=== PATIENT | male | born 1970 | race Caucasian/White ===

== ENCOUNTER 2020-07-28 20:46 | Inpatient (IN) | payer BC ==
[~2020-07-28] VITALS: Ht 172.7 cm; Wt 120.2 kg
[2020-07-28] MEDS ORDERED: ONDANSETRON HCL INJ 2MG/ML 2ML 2 MG/ML VIAL ONE ×2 (21:01→21:39)
[2020-07-28] MEDS ORDERED: SODIUM CHLORIDE 0.9% 1000ML 1,000 ML ONE (21:01)
[2020-07-28] MEDS ORDERED: FAMOTIDINE 20 MG/2 ML VIAL IV STA (21:18)
[2020-07-28] MEDS ORDERED: ONDANSETRON HCL INJ 2MG/ML 2ML 2 MG/ML VIAL IV STA ×2 (21:18)
[2020-07-28] MEDS ORDERED: KETOROLAC TROMETHAMINE 30 MG/ML VIAL IV STA (21:23)
[2020-07-28] MEDS ORDERED: KETOROLAC TROMETHAMINE 30 MG/ML VIAL ONE (21:39)
[2020-07-28] MEDS ORDERED: FAMOTIDINE 20 MG/2 ML VIAL IV ONE (21:39)
[2020-07-28] MEDS ORDERED: SODIUM CHLORIDE 0.9% 1000ML 1,000 ML IV STA (21:39)
[2020-07-28] MEDS: SODIUM CHLORIDE 0.9% 1000ML 1,000 ML IV SCH (21:45)
[2020-07-28] MEDS ORDERED: SODIUM CHLORIDE 0.9% 50ML 50 ML ONE (21:50)
[2020-07-28] MEDS ORDERED: IOPAMIDOL 370 MG/ML 200 ML INFUS..BTL INJ ONE (21:51)
--- NOTE | 2020-07-28 22:41 | Diagnostic Imaging Report ---
EXAMINATION: CXR 2 VIEW - HOPD INDICATION: ^epigastric pain ^[id number] ^221 COMPARISON: None FINDINGS: PA and lateral views TUBES and LINES: None. LUNGS: Lungs are well inflated. Mild left basilar subsegmental atelectasis. PLEURA: No pleural effusion or pneumothorax. HEART AND MEDIASTINUM: The cardiomediastinal silhouette is unremarkable. BONES AND SOFT TISSUES: No acute osseous lesion. Elevated left hemidiaphragm. UPPER ABDOMEN: No free air under the diaphragm. Gaseous distention of stomach. IMPRESSION: Elevated left hemidiaphragm with mild left basilar subsegmental atelectasis. Gaseous distention of stomach. Signed by: Dr. Hua Bowden MD on 07/28/2020 10:38 PM
[2020-07-28] MEDS ORDERED: MORPHINE SULFATE INJ 4 MG/ML INJ 1ML IV STA (22:42)
--- NOTE | 2020-07-28 22:51 | Diagnostic Imaging Report ---
EXAM: CT Abdomen and Pelvis WITH contrast INDICATION: ^abd pain ^[id number] ^[id number] COMPARISON: None. TECHNIQUE: Abdomen and pelvis were scanned utilizing a multidetector helical scanner from the lung base to the pubic symphysis after administration of IV contrast. Coronal and sagittal reformations were obtained. Dose modulation, iterative reconstruction, and/or weight based adjustment of the mA/kV was utilized to reduce the radiation dose to as low as reasonably achievable. Routine protocol was performed. Scan was performed when during portal venous phase. IV CONTRAST: 100 mL of Isovue-370 ORAL CONTRAST: None COMPLICATIONS: None RADIATION DOSE: Total DLP: 929.56 mGy*cm Estimated effective dose: (DLP x 0.015 x size factor) mSv CTDIvol has been reviewed. It is below the limits set by the Radiation Protocol Committee (RPC). FINDINGS: LINES and TUBES: None. LOWER THORAX: Tiny left upper lobe nonspecific nodule. HEPATOBILIARY: Multiple ill-defined right hepatic lobe hypodensities, measuring up to 2.5 cm. No biliary ductal dilation. GALLBLADDER: Cholelithiasis. No wall thickening. SPLEEN: Splenomegaly. PANCREAS: No focal masses or ductal dilatation. ADRENALS: No adrenal nodules KIDNEYS/URETERS: Kidneys enhance symmetrically. No hydronephrosis. No cystic or solid mass lesions. No stones. GI TRACT: No wall thickening, or evidence of bowel obstruction. Moderate gaseous distention of stomach. Appendix is normal. PELVIC ORGANS/BLADDER: Unremarkable. LYMPH NODES: No lymphadenopathy. Scattered prominent mesenteric lymph nodes with stranding haziness for example in series 2, image 60. VESSELS: Unremarkable. PERITONEUM / RETROPERITONEUM: No free air or fluid. BONES: Degenerative changes of lower lumbar spine. SOFT TISSUES: Elevated left hemidiaphragm. Left upper quadrant splenule. Small fat-containing bilateral inguinal hernia. IMPRESSION: 1. Moderate gaseous distention of stomach. Gastric outlet obstruction cannot be excluded. 2. Multiple indeterminate hepatic hypodensities. Recommend nonurgent liver mass protocol MRI for further characterization. 3. Cholelithiasis without CT evidence of cholecystitis. 4. Multiple prominent mesenteric lymph nodes with surrounding halo. Attention on follow-up examination. 5. Tiny left upper lobe lung nodule. Without risk factors, no follow-up is necessary. With risk factors, follow-up with low-dose chest CT in one year is optional. Signed by: Dr. Hua Bowden MD on 07/28/2020 10:48 PM
[2020-07-28] MEDS ORDERED: MORPHINE SULFATE INJ 4 MG/ML INJ 1ML ONE (22:54)
--- NOTE | 2020-07-28 23:39 | NUR ---
[facility] NOTIFIED OF NEED FOR TRANSFER TO [facility] ROOM 100. ETA 45 MINUTES TO ONE HOUR
[2020-07-28] MEDS: SODIUM CHLORIDE 0.9% 250ML IRRIG IR SCH (23:45)
[2020-07-28] MEDS ORDERED: ONDANSETRON HCL INJ 2MG/ML 2ML 2 MG/ML VIAL IV PRN (23:45)
[2020-07-29] VITALS (9 sets, daily range): BP systolic 120–152; BP diastolic 54–78
--- NOTE | 2020-07-29 00:33 | Emergency Department Note ---
History of Present Illnes History of Present Illness Chief Complaint: Abdominal Complaints History of Present Illness This is a 50 year old male with epigastric pain at 1800 and worse with N/V after eating a few minutes. Last meal before that was left over Thai. No one else that ate Thai got ill. No CP, SOB, diaphoresis. Last BM this afternoon was WNL with no constipation, diarrhea, melena, or hematachezia. No cough, congestion, lack of taste/smell, sore throat, or runny nose. No blood in vomit. Historian: Patient Arrival Mode: [facility] Laboratory Technician Required: No Onset (how long ago): hour(s) Location: epigastric Quality: "knife" like Radiation: Reports non-radiation Severity: severe Onset quality: gradual Duration (how long): hour(s) Timing of current episode: constant Progression: unchanged Chronicity: new Context: Denies trauma/injury Relieving factors: none Exacerbating factors: none Associated symptoms: Reports nausea/vomiting; Denies chest pain, Denies fever/chills, Denies shortness of breath, Denies syncope Past Medical/Family History Physician Review I have reviewed the patient's past medical and family history. Any updates have been documented here. Past Medical History Recent Fever: No Clinical Suspicion of Infectio: No New/Unexplained Change in Ment: No Past Medical History: Hypertension Other Surgery: OPEN HEART SURGERY A CHILD AGE 3 Social History Smoking Cessation: Never Smoker Counseling Performed: No Alcohol Use: Occasional Any Illegal Drug Use: No Other Any Pre-Existing Lines (PICC,: No Review of Systems Review of Systems Constitutional: Denies chills, Denies diaphoresis, Denies fever, Denies malaise EENTM: Denies ear discharge, Denies nose congestion, Denies throat pain Cardiovascular: Denies chest pain, Denies edema, Denies palpitations Respiratory: Denies chest congestion, Denies hemoptysis Gastrointestinal: Denies abdominal pain, Denies constipation Genitourinary: Denies dysuria, Denies hematuria Musculoskeletal: Denies joint pain, Denies neck pain Integumentary: Denies rash Neurological: Denies headache Psychological: Denies anxiety Endocrine: Denies increased thirst, Denies increased urination Hematological/Lymphatic: Denies easy bleeding, Denies easy bruising Physical Exam Related Data Allergies: Coded Allergies: No Known Allergies (Unverified , 07/28/20) Triage Vital Signs Vital Signs Date Time Temp Pulse Resp B/P (MAP) Pulse Ox O2 Delivery O2 Flow Rate FiO2 07/28/20 21:12 97.8 58 18 164/77 99 Physical Exam CONSTITUTIONAL Constitutional: Present well-developed, Present well-nourished HENT HENT: Present normocephalic, Present atraumatic, Present oropharynx clear/moist, Present nose normal HENT L/R: Present left ext ear normal, Present right ext ear normal EYES Eyes: Reports PERRL, Reports conjunctivae normal NECK Neck: Present ROM normal PULMONARY Pulmonary: Present effort normal, Present breath sounds normal CARDIOVASCULAR Cardiovascular: Present regular rhythm, Present heart sounds normal, Present capillary refill normal, Present normal rate GASTROINTESTINAL Abdominal: Present bowel sounds normal, Present tender (epigastric tenderness, no Bautista's); Absent mass, Absent left CVA tenderness, Absent right CVA tenderness GENITOURINARY SKIN Skin: Present warm, Present dry MUSCULOSKELETAL Musculoskeletal: Present ROM normal NEUROLOGICAL Neurological: Present alert, Present oriented x 3, Present no gross motor or sensory deficits PSYCHOLOGICAL Psychological: Present mood/affect normal, Present judgement normal Results Laboratory Laboratory comments wbc 12.6, CMP: glu 132, CL 96, cr 1.4 o/w negative, Imaging Imaging Comments EXAM: CT Abdomen and Pelvis WITH contrast INDICATION: ^abd pain ^[id number] ^[id number] COMPARISON: None. TECHNIQUE: Abdomen and pelvis were scanned utilizing a multidetector helical scanner from the lung base to the pubic symphysis after administration of IV contrast. Coronal and sagittal reformations were obtained. Dose modulation, iterative reconstruction, and/or weight based adjustment of the mA/kV was utilized to reduce the radiation dose to as low as reasonably achievable. Routine protocol was performed. Scan was performed when during portal venous phase. IV CONTRAST: 100 mL of Isovue-370 ORAL CONTRAST: None COMPLICATIONS: None RADIATION DOSE: Total DLP: 929.56 mGy*cm Estimated effective dose: (DLP x 0.015 x size factor) mSv CTDIvol has been reviewed. It is below the limits set by the Radiation Protocol Committee (RPC). FINDINGS: LINES and TUBES: None. LOWER THORAX: Tiny left upper lobe nonspecific nodule. HEPATOBILIARY: Multiple ill-defined right hepatic lobe hypodensities, measuring up to 2.5 cm. No biliary ductal dilation. GALLBLADDER: Cholelithiasis. No wall thickening. SPLEEN: Splenomegaly. PANCREAS: No focal masses or ductal dilatation. ADRENALS: No adrenal nodules KIDNEYS/URETERS: Kidneys enhance symmetrically. No hydronephrosis. No cystic or solid mass lesions. No stones. GI TRACT: No wall thickening, or evidence of bowel obstruction. Moderate gaseous distention of stomach. Appendix is normal. PELVIC ORGANS/BLADDER: Unremarkable. LYMPH NODES: No lymphadenopathy. Scattered prominent mesenteric lymph nodes with stranding haziness for example in series 2, image 60. VESSELS: Unremarkable. PERITONEUM / RETROPERITONEUM: No free air or fluid. BONES: Degenerative changes of lower lumbar spine. SOFT TISSUES: Elevated left hemidiaphragm. Left upper quadrant splenule. Small fat-containing bilateral inguinal hernia. IMPRESSION: 1. Moderate gaseous distention of stomach. Gastric outlet obstruction cannot be excluded. 2. Multiple indeterminate hepatic hypodensities. Recommend nonurgent liver mass protocol MRI for further characterization. 3. Cholelithiasis without CT evidence of cholecystitis. 4. Multiple prominent mesenteric lymph nodes with surrounding halo. Attention on follow-up examination. 5. Tiny left upper lobe lung nodule. Without risk factors, no follow-up is necessary. With risk factors, follow-up with low-dose chest CT in one year is optional. Signed by: Dr. Hua Bowden MD on 07/28/2020 10:48 PM EXAMINATION: CXR 2 VIEW - HOPD INDICATION: ^epigastric pain ^[id number] ^2209 COMPARISON: None FINDINGS: PA and lateral views TUBES and LINES: None. LUNGS: Lungs are well inflated. Mild left basilar subsegmental atelectasis. PLEURA: No pleural effusion or pneumothorax. HEART AND MEDIASTINUM: The cardiomediastinal silhouette is unremarkable. BONES AND SOFT TISSUES: No acute osseous lesion. Elevated left hemidiaphragm. UPPER ABDOMEN: No free air under the diaphragm. Gaseous distention of stomach. IMPRESSION: Elevated left hemidiaphragm with mild left basilar subsegmental atelectasis. Gaseous distention of stomach. Signed by: Dr. Hua Bowden MD on 07/28/2020 10:38 PM Procedures 12 Lead ECG Interpretation ECG Interpretation : ECG: ECG 1 [facility] Laboratory Technician: Interpreted by ED physician Prior ECG tracings: reviewed Rhythm: sinus bradycardia BPM: 54 Conduction: bifascicular block ST segments normal: Yes Clinical Impression: abnormal ECG Assessment & Plan Medical Decision Making MDM Differential dx includes, but not limited to: Cholelithiases, cholecystits, bowel obstruciton, IN, pancreatitis, pneumothorax, AAA, dissection, pneumonia, gastroenteritis, PUD, gastritis. Reassessment Reassessment time: 00:31 (Nausea resolved. Abd pain improved. Resting comfortably.) Assessment & Plan Final Impression: (1) Gastric outlet obstruction (2) Cholelithiases Depart Disposition: ADMITTED Last Vital Signs Date Time Temp Pulse Resp B/P (MAP) Pulse Ox O2 Delivery O2 Flow Rate FiO2 07/28/20 21:12 97.8 58 18 164/77 99 Medications in the ED Ondansetron HCl 4 mg STK-MED ONCE .ROUTE ; Start 07/28/20 at 21:01; Stop 07/28/20 at 20:56; Status DC Sodium Chloride 1,000 ml @ ud STK-MED ONCE .ROUTE ; Start 07/28/20 at 21:01; Stop 07/28/20 at 20:56; Status DC Ondansetron HCl 4 mg NOW STAT IV Last administered on 07/28/20at 21:40; Admin Dose 4 MG; Start 07/28/20 at 21:18; Stop 07/28/20 at 21:27; Status DC Ondansetron HCl 4 mg NOW STAT IV Last administered on 07/28/20at 21:30; Admin Dose 4 MG; Start 07/28/20 at 21:18; Stop 07/28/20 at 21:27; Status DC Famotidine 20 mg NOW STAT IV Last administered on 07/28/20at 21:42; Admin Dose 20 MG; Start 07/28/20 at 21:18; Stop 07/28/20 at 21:27; Status DC Ketorolac Tromethamine 30 mg ONCE STAT IV Last administered on 07/28/20at 21:44; Admin Dose 30 MG; Start 07/28/20 at 21:23; Stop 07/28/20 at 21:27; Statu s DC Ondansetron HCl 4 mg STK-MED ONCE .ROUTE ; Start 07/28/20 at 21:39; Stop 07/28/20 at 21:34; Status DC Ketorolac Tromethamine 30 mg STK-MED ONCE .ROUTE ; Start 07/28/20 at 21:39; Stop 07/28/20 at 21:34; Status DC Famotidine 20 mg STK-MED ONCE IV ; Start 07/28/20 at 21:39; Stop 07/28/20 at 21:34; Status DC Sodium Chloride 1,000 ml @ 125 mls/hr Q8H IV ; Start 07/28/20 at 21:45; Stop 08/27/20 at 21:44 Sodium Chloride 1,000 ml @ 100 mls/hr Q10H STAT IV Last administered on 07/28/20at 21:30; Admin Dose 1,000 MLS/HR; Start 07/28/20 at 21:39; Stop 07/28/20 at 21:48; Status DC Sodium Chloride 50 ml @ ud STK-MED ONCE .ROUTE ; Start 07/28/20 at 21:50; Stop 07/28/20 at 21:47; Status DC Iopamidol 74,000 mg STK-MED ONCE INJ ; Start 07/28/20 at 21:51; Stop 07/28/20 at 21:47; Status DC Morphine Sulfate 4 mg NOW STAT IV ; Start 07/28/20 at 22:42; Stop 07/28/20 at 22:43; Status DC Morphine Sulfate 4 mg STK-MED ONCE .ROUTE ; Start 07/28/20 at 22:54; Stop 07/28/20 at 22:48; Status DC JACKY PRINCE MD Jul 28, 2020 23:22
--- NOTE | 2020-07-29 01:24 | NUR ---
RECEIVED PATIENT FROM [facility] ED AT THIS TIME VIA STRETCHER. PATIENT AMBULATED TO BED, STEADY GAIT NOTED. A&OX4. LUNG SOUNDS CLEAR. BOWEL SOUNDS ACTIVE. PEDAL PULSES PALPABLE. SKIN INTACT. NO PAIN OR NAUSEA AT THIS TIME. NO S&S OF DISTRESS NOTED. BED LOCKED IN LOWEST POSITION, SIDE RAILS UPX2, CALL LIGHT IN REACH.
[2020-07-29] MEDS ORDERED: LISINOPRIL20 MG PO (01:58)
[2020-07-29] MEDS: D5.45%NS/KCL 20MEQ 1,000 ML IV SCH ×3 (02:08→15:45)
--- NOTE | 2020-07-29 03:25 | Diagnostic Imaging Report ---
EXAM: Abdomen 1 Views INDICATION: ^NG TUBE PLACEMENT ^[id number] ^[id number] COMPARISON: CT abdomen/pelvis dated 07/28/2020 IMPRESSION: Interval placement of nasogastric tube with decreased gaseous distention of stomach when compared to prior CT. The tip of nasogastric tube projects over the gastric body. Elevated left hemidiaphragm. Signed by: Dr. Hua Bowden MD on 07/29/2020 3:22 AM
[2020-07-29] MEDS: MORPHINE SULFATE INJ 4 MG/ML INJ 1ML IV PRN ×5 (03:30→19:50)
[2020-07-29] MEDS: SODIUM CHLORIDE 0.9% 250ML IRRIG IR SCH ×6 (03:42→23:45)
--- NOTE | 2020-07-29 03:45 | NUR ---
NGTUBE INSERTED TO L NARE AT 0230. GASTRIC FLUID NOTED TO TUBE. CLAMPED. ORDERED ABD X RAY TO CHECK PLACEMENT WHICH SHOWED TUBE IN THE STOMACH. FLUSHED AND CONNECTED TO SUCTION. REDDISH/BROWN FLUID NOTED. WILL CONTINUE TO MONITOR.
[2020-07-29] MEDS: SODIUM CHLORIDE 0.9% 1000ML 1,000 ML IV SCH (05:45)
[2020-07-29 06:59] LABS: ALANINE AMINOTRANSFERASE 17 IU/L (0-55); ALBUMIN 3.9 g/dL (3.5-5.0); ALBUMIN/GLOBULIN RATIO 1.7 (0.8-2.0); ALKALINE PHOSPHATASE 68 IU/L (40-150); AMYLASE 49 U/L (25-125); ANION GAP 11.9 mmol/L (8-16); BLOOD UREA NITROGEN 17 mg/dL (7-26); BUN/CREATININE RATIO 17 (6-25); CARBON DIOXIDE 27 mmol/L (22-29); CHLORIDE 106 mmol/L (98-107); CREATININE, SERUM 0.99 mg/dL (0.72-1.25); EST GLOMERULAR FILTRATION RATE > 60 ML/MIN (60-); GLUCOSE 118 mg/dL (74-118); LIPASE 12 U/L (8-78); POTASSIUM 3.9 mmol/L (3.5-5.1); SODIUM 141 mmol/L (136-145)
[2020-07-29 07:00] LABS: BASOPHILS # (AUTO) 0.1 (0.0-0.1); BASOPHILS % 0.5 % (0.0-1.0); EOSINOPHILS # (AUTO) 0.1 (0.0-0.4); EOSINOPHILS % 0.7 % (0.0-6.0); HEMATOCRIT 38.9 % (38.2-49.6); HEMOGLOBIN 12.7 g/dL (14.0-18.0); LYMPHOCYTES # (AUTO) 1.5 (1.0-3.2); MEAN CORPUSCULAR HEMOGLOBIN 30.3 pg (28-32); MEAN CORPUSCULAR HGB CONC 32.6 g/dL (31-35); MEAN CORPUSCULAR VOLUME 92.8 fL (81-99); MONOCYTES # (AUTO) 0.7 (0.2-0.8); MONOCYTES % 6.2 % (4.4-11.3); NEUTROPHILS # (AUTO) 8.6 (2.1-6.9); NEUTROPHILS % 77.7 % (38.7-80.0); PLATELET COUNT 143 x10e3/uL (140-360); RED BLOOD COUNT 4.19 x10e6/uL (4.3-5.7)
--- NOTE | 2020-07-29 08:58 | Diagnostic Imaging Report ---
EXAM: Abdominal series-4 views; Frontal radiograph of the chest chest-1 view INDICATION: gastric outlet obstruction COMPARISON: CT abdomen/pelvis dated 07/28/2020 and KUB 07/28/2020. Findings: Abdomen/Pelvis: Enteric tube terminates in the distal stomach. No specific evidence of bowel obstruction. No evidence of pneumoperitoneum. Cholelithiasis. Retained contrast within the bladder. No acute osseous abnormality. Chest: Cardiomediastinal silhouette is unchanged. There are patchy opacities at the left lung base. Mild interstitial opacities. No pleural effusion or pneumothorax. Status post median sternotomy. Elevation of left hemidiaphragm. Impression: Enteric tube as above. No specific evidence of bowel obstruction. Patchy left basilar opacity, likely atelectasis with associated elevation of left hemidiaphragm. Signed by: Dr. Jose Anaya MD on 07/29/2020 8:55 AM
--- OUTSIDE RECORDS SUMMARY | 2020-07-29 16:48 | XMS REPORT | Continuity of Care Document ---
Author Author [facility] t Organization [facility] Address [address] [place] [phone] Phone Unavailable Care Team Providers Care Guest Services Director Name Role Phone Gael Horan MD PCP DAMary BUI Attphymary Unavailable Gael Horan MD Attphys DAMary BUI Admphys Unavailable Payers Payer Name Policy Type Policy Number Effective Date Expiration Date S cherri BCBSBCBS CHOICE PPO/FEDERAL EMPL [id number] 2019-Pre sentPPO [id number] 2020 00:00:00 Kyle Bautista Problems Condition Name Condition Details Condition Category Status Onset Date Resolution Date Last Treatment Date Treating Clinician Comments Source IFG (impaired fasting glucose) IFG (impaired fasting glucose) Disea se Active 2018-09-28 00:00:00 Kyle Bautista Obesity (BMI 30-39.9) Obesity (BMI 30-39.9) Disease Active 201 06-12-27 00:00:00 Kyle Medina t Essential hypertension Essential hypertension Disease Active 2018-04-05 00:00:[address] Mixed hyperlipidemia Mixed hyperlipidemia Disease Active 00:00:00 Kyle Bautista Morbid obesity with BMI of 40.0-44.9, adult Morbid obe sity with BMI of 40.0- 44.9, adult Disease Active 2018-04-05 00:00:00 Kyle Bautista Allergies, Adverse Reactions, Alerts This patient has no known allergies or adverse reactions. Social History Social Habit Start Date Stop Date Quantity Comments Source Sex Assigned At Krishanmichelle espinoza [place] Tobacco use and exposure 2020-05-01 00:00:00 2020-05-01 00:00:00 Anali lennon used Kyle Bautista Alcohol intake 2020-05-01 00:00:00 2020-05-01 00:00:00 Current non-drinker of alcohol (finding) Kyle Bautista Smoking Status Start Date Stop Date Source Never smoker Kyle Medina t Medications Ordered Medication Name Filled Medication Name Start Date Stop Da te Current Medication? Ordering Clinician Indication Dosage Frequency Signature (SIG) Comments Components Source lisinopriL-hydrochlorothiazide (PRINZIDE) 20-12.5 mg per tab let 2020-04-20 00:00:00 Yes Essential hypertension TAKE 1 T ABLET BY MOUTH EVERY DAY Kyle Bautista atorvastatin (LIPITOR) 40 mg tablet 2020-04-20 00:00:0 0 2020-05-01 00:00:00 No Mixed hyperlipidemia TAKE 1 TABLET BY MOUTH EVER Y DAY IN THE EVENING Kyle Bautista atorvastatin (LIPITOR) 40 MG tablet 2019-10-27 00:00:0 0 2020-04-20 00:00:00 No Mixed hyperlipidemia TAKE 1 TABLET BY MOUTH EVER Y EVENING Kyle Bautista lisinopril-hydrochlorothiazide (PRINZIDE) 20-12.5 mg per tab let 2019-10-27 00:00:00 2020-04-20 00:00:00 No Essential hypertension TAKE 1 TABLET BY MOUTH EVERY DAY Kyle Bautista atorvastatin (LIPITOR) 40 MG tablet 2019-05-01 00:00:0 0 2019-10-27 00:00:00 No Mixed hyperlipidemia TAKE 1 TABLET BY MOUTH EVER Y EVENING Kyle Bautista lisinopril-hydrochlorothiazide (PRINZIDE,ZESTORETIC) 20-12.5 mg per tablet 2019-05-01 00:00:00 2019-10-27 00:00:00 No Essential hypertensi on TAKE 1 TABLET BY MOUTH EVERY DAY Kyle Squires ismaria eugenia atorvastatin (LIPITOR) 40 MG tablet 2018-10-08 00:00:00 Yes Mixed hyperlipidemia TAKE 1 TABLET BY MOUTH EVERY EVENING Kyle Bautista Immunizations Ordered Immunization Name Filled Immunization Name Date Status Comments Source Zoster Vaccine Recombinant 2019-09-21 00:00:00 Blayne Bautista Zoster Vaccine Recombinant 2019-07-21 00:00:00 Blayne Bautista FLUBLOK QUAD PF 2019-07-21 00:00:00 Completed Kyle Bautista Tdap 2018-09-28 00:00:00 Completed [place] FLUZONE QUAD PF 2018-09-28 00:00:00 Completed Kyle Bautista Vital Signs Vital Name Observation Time Observation Value Comments Source Systolic blood pressure 2020-05-01 13:04:00 138 mm[Hg] Kyle Bautista Diastolic blood pressure 2020-05-01 13:04:00 87 mm[Hg] Kyle Bautista Heart rate 2020-05-01 13:04:00 92 /min Kyle Bautista Body height 2020-05-01 13:04:00 175.3 cm Kyle Bautista Body weight 2020-05-01 13:04:00 119.75 kg Kyle Bautista BMI 2020-05-01 13:04:00 38.99 kg/m2 Kyle Bautista Procedures Procedure Date / Time Performed Performing Clinician [facility] alyssa [id number] 2020-06-22 00:00:00 Jose Horan CBC WITH PLATELET AND DIFFERENTIAL 2020-05-01 13:44:00 Jose Horan COMPREHENSIVE METABOLIC PANEL 2020-05-01 13:44:00 Delgado Horan HEMOGLOBIN A1C 2020-05-01 13:44:00 Jose Horan LIPID PANEL 2020-05-01 13:44:00 Jose Horan PROSTATE SPECIFIC ANTIGEN 2020-05-01 13:44:00 Jose Horan URINALYSIS, COMPLETE, WITH REFLEX TO CULTURE 2020-05-01 13:4 4:00 Jose Horan VITAMIN D 25 HYDROXY LEVEL 2020-05-01 13:44:00 Jose Horan ECG 12-LEAD 2020-05-01 12:33:50 Jose Horan Plan of Care Planned Activity Planned Date Details Comments Source Future Scheduled Test 2030-05-08 00:00:00 COLONOSCOPY SCREEN ING [code = COLONOSCOPY SCREENING] Kyle Bautista Future Scheduled Test 2020-06-02 00:00:00 INFLUENZA VACCINE [code = INFLUENZA VACCINE] Kyle Bautista Encounters Start Date/Time End Date[facility] Source 2020-05-01 00:00:00 2020-05-01 00:00:00 Outpatient [facility] [id number] [facility] Results Test Description Test Time Test Comments Results Result Comments Source ABDOMEN ACUTE SERIES W/PA CXR 2020-07-29 07:38:00 [facility] [address] [address] Patient Name: DIVYA HUI MR #: [id number] : 1970 Age/Sex: 50/M Req #: [id number] Adm Physician: ADILIA MURRAY MD Ordered by: JACKY PRINCE MD Report #: [id number] Location: MED/SURG Room/Bed: [facility] Procedure: [id number] DX/ABDOMEN ACUTE SERIES W/PA CXR Exam Date: 07/29/20 Exam Time: 0635 REPORT STATUS: Signed EXAM: Abdominal series-4 views; Frontal radiograph of the chest chest-1 view INDICATION: gastric outlet obstruction COMPARISON: CT abdomen/pelvis dated 07/28/2020 and KUB 07/28/2020. Findings: Abdomen/Pelvis: Enteric tube terminates in the di stal stomach. No specific evidence of bowel obstruction. No evidence of pneumoperitoneum. Cholelithiasis. Retained contrast within the bladder. No acute osseous abnormality. Chest: Cardiomediastinal silhouette is unchanged. There are patchy opacities at the left lung base. Mild interstitial opacities. No pleural effusion or pneumothorax. Status post median sternotomy. Elevation of left hemidiaphragm. Impression: Enteric tube as above. No specific evidence of bowel obstruction. Patchy left basilar opacity, likely atelectasis with associated elevation of left hemidiaphragm. Signed by: Dr. Evita Ramesh MD on 07/29/2020 8:55 AM Dictated By: EVITA RAMESH MD 4 Transcribed By: SUNIL on 07/29/20854 COPY TO: JACKY PRINCE MD ABDOMEN-1VIEW (KUB) 2020-07-29 03:20:[address] [address] Patient Name: DIVYA HUI MR #: [id number] : 1970 Age/Sex: 50/M Req #: [id number] Adm Physician: ADILIA MURRAY MD Ordered by: ADILIA MURRAY MD Report #: [id number] Location: MED/SURG Room/Bed: [facility] Procedure: [id number] DX/ABDOMEN-1VIEW (KUB) Exam Date: 07/29/20 Exam Time: 254 REPORT STATUS: Signed EXAM: Abdomen 1 Views INDICATION: NG TUBE PLACEMENT 20200729 COMPARISON: CT abdomen/pelvis dated 07/28/2020 IMPRESSION: Interval placement of nasogastric tube with decreased gaseous distention of stomach when compared to prior CT. The tip of nasogastric tube projects over the gastric body. Elevated left hemidiaphragm. Signed by: Dr. Hua Flores MD on 07/29/2020 3:22 AM Dictated By: HUA FLORES MD 1 Transcribed By: SUNIL on 07/29/20321 COPY TO: ADILIA MURRAY MD CT ABD/PEL WITH CONTRAST-HOPD 2020-07-28 22:38:00 [address] [address] Patient Name: DIVYA HUI MR #: [id number] : 1970 Age/Sex: 50/M Req #: [id number] [facility] Physician: Ordered by: JACKY PRINCE MD Report #: [id number] Location: [facility] Room/Bed: Procedure: HOPD/CT ABD/PEL WITH CONTRAST-HOPD Exam Date: 07/28/20 Exam Time: 2209 REPORT STATUS: Signed EXAM: CT Abdomen and Pelvis WITH contrast INDICATION: abd pain 20200728 COMPARISON: None. TECHNIQUE: Abdomen and pelvis were scanned utilizing a multidetector helical scanner from the lung base to the pubic symphysis after administration of IV contrast. Coronal and sagittal reformations were obtained. Dose modulation, iterative reconstruction, and/or weight based adjustment of the mA/kV was utilized to reduce the radiation dose to as low as reasonably achievable. Routine protocol was performed. Scan was performed when during portal venous phase. IV CONTRAST: 100 mL of Isovue-370 ORAL CONTRAST: None COMPLICATIONS: None RADIATION DOSE: Total DLP: 929.56 mGy*cm Estimated effective dose: (DLP x 0.015 x size factor) mSv CTDIvol has been reviewed. It is below the limits set by the Radiation Protocol Committee (RPC). FINDINGS: LINES and TUBES: None. LOWER THORAX: Tiny left upper lobe nonspecific nodule. HEPATOBILIARY: Multiple ill-defined right hepatic lobe hypodensities, measuring up to 2.5 cm. No biliary ductal dilation. GALLBLADDER: Cholelithiasis. No wall thickening. SPLEEN: Splenomegaly. PANCREAS: No focal masses or ductal dilatation. ADRENALS: No adrenal nodules KIDNEYS/URETERS: Kidneys enhance symmetrically. No hydronephrosis. No cystic or solid mass lesions. No stones. GI TRACT: No wall thickening, or evidence of bowel obstruction. Moderate gaseous distention of stomach. Appendix is normal. PELVIC ORGANS/BLADDER: Unremarkable. LYMPH NODES: No lymphadenopathy. Scattered prominent mesenteric lymph nodes with stranding haziness for example in series 2, image 60. VESSELS: Unremarkable. PERITONEUM / RETROPERITONEUM: No free air or fluid. BONES: Degenerative changes of lower lumbar spine. SOFT TISSUES: Elevated left hemidiaphragm. Left upper quadrant splenule. Small fat-containing bilateral inguinal hernia. IMPRESSION: 1. Moderate gaseous distention of stomach. Gastric outlet obstruction cannot be excluded. 2. Multiple indeterminate hepatic hypodensities. Recommend nonurgent liver mass protocol MRI for further characterization. 3. Cholelithiasis without CT evidence of cholecystitis. 4. Multiple prominent mesenteric lymph nodes with surrounding halo. Attention on follow-up examination. 5. Tiny left upper lobe lung nodule. Without risk factors, no follow-up is necessary. With risk factors, follow-up with low-dose chest CT in one year is optional. Signed by: Dr. Hua Flores MD on 07/28/2020 10:48 PM Dictated By: HUA FLORES MD 47 Transcribed By: SUNIL on 07/28/202247 COPY TO: JACKY PRINCE MD CXR 2 VIEW - HOPD 2020-07-28 22:37:00 [address] [address] Patient Name: DIVYA HUI MR #: [id number] : 1970 Age/Sex: 50/M Req #: [id number] Adm Physician: Ordered by: JACKY PRINCE MD Report #: [id number] Location: [facility] Room/Bed: Procedure: [id number] HOPD/CXR 2 VIEW - HOPD Exam Date: 07/28/20 Exam Time: 2209 REPORT STATUS: Signed EXAMINATION: CXR 2 VIEW - HOPD INDICATION: epigastric pain 20200728 COMPARISON: None FINDINGS: PA and lateral views TUBES and LINES: None. LUNGS: Lungs are well inflated. Mild left basilar subsegmental atelectasis. PLEURA: No pleural effusion or pneumothorax. HEART AND MEDIASTINUM: The cardiomediastinal silhouette is unremarkable. BONES AND SOFT TISSUES: No acute osseous lesion. Elevated left hemidiaphragm. UPPER ABDOMEN: No free air under the diaphragm. Gaseous distention of stomach. IMPRESSION: Elevated left hemidiaphragm with mild left basilar subsegmental atelectasis. Gaseous distention of stomach. Signed by: Dr. Hua Flores MD on 07/28/2020 10:38 PM Dictated By: HUA FLORES MD 37 Transcribed By: SUNIL on 07/28/202237 COPY TO: JACKY PRINCE MD Comprehensive metabolic panel 2020-05-02 12:15:00 Test Item Glucose (test code = 2345-7) 86 mg/dL 65-139 Non-fasting reference interval BUN (test code = 3094-0) 19 mg/dL 7-25 Creatinine (test code = 2160-0) 1.15 mg/dL 0.7-1.33 For patients >49 years of age, the reference limitfor Creatinine is approximately 13% higher for peopleidentified as -Niuean. EGFR Non-Afr. Niuean (test code = 2775) 74 > OR = 60 mL /min/1.73m2 EGFR (test code = 17615-9) 86 > OR = 60 mL/min/1.73m2 BUN/creatinine ratio (test code = 3097-3) NOT APPLICABLE 6- 22 (paola c) Sodium (test code = 2951-2) 142 mmol/L 135-146 Potassium (test code = 2823-3) 3.9 mmol/L 3.5-5.3 Chloride (test code = 2075-0) 101 mmol/L 98-110 CO2 (test code = 2027-9) 31 mmol/L 20-32 Calcium (test code = 01788-5) 9.3 mg/dL 8.6-10.3 Protein (test code = 2885-2) 7.5 g/dL 6.1-8.1 Albumin, S (test code = 1751-7) 4.7 g/dL 3.6-5.1 Globulin, total (test code = 63286-4) 2.8 1.9- 3.7 g/dL (c alc) Albumin/globulin ratio (test code = 1759-0) 1.7 1.0- 2.5 ( calc) Total bilirubin (test code = 1974-2) 1.1 mg/dL 0.2-1.2 Alkaline phosphatase (test code = 6768-6) 77 U/L 35-144 AST (test code = 1920-8) 15 U/L 10-35 ALT (test code = 1742-6) 19 U/L 9-46 EVAN (test code = EVAN) FASTING:NOFASTING: NO RAC (test code = RAC) Performing Organization Info rmation: Site ID: RGA Name: [facility] Address: [address] [place] [phone] Director: Sukhwinder Coreas [facility] [id number] 12:15:00* Test Item Value Reference Range Interpretation Comments Cholesterol, total (test code = 2093-3) 184 mg/dL <200 HDL cholesterol (test code = 2085-9) 38 mg/dL > OR = 40 L Triglycerides (test code = 2571-8) 257 mg/dL <150 H If a non-fasting specimen was collected, considerrepeat triglyceride testing on a fasting specimenif clinically indicated. Yared et al. J. of Clin. Lipidol. 2015;9:129-169. LDL cholesterol calculated (test code = 40420-9) 109 mg/dL (calc) H Reference range: <100 Desirable range <100 mg/dL for primary prevention; <70 mg/dL for patients with CHD or diabetic patients with > or = 2 CHD risk factors. LDL-C is now calculated using the Gurmeet calculation, which is a validated novel method providing better accuracy than the Friedewald equation in the estimation of LDL-C. Edwin ROQUE et al. AMBIKA. 2013;310(19): 3354-2072 (http:/ /education.tocario/faq/XSH489) Cholesterol/HDL ratio (test code = 9830-1) 4.8 <5.0 (calc) Non-HDL cholesterol (test code = 64788-8) 146 <130 mg/dL ( calc) H For patients with diabetes plus 1 major ASCVD risk factor, treating to a non-HDL-C goal of <100 mg/dL (LDL-C of <70 mg/dL) is considered a therapeutic option. EVAN (test code = EVAN) FASTING:NOFASTING: NO RAC (test code = RAC) Performing Organization Info rmation: Site ID: RGA Name: [facility] Address: [address] [place] [phone] Director: Sukhwinder Coreas Lab Interpretation (test code = 37716-4) Abnormal [facility] [id number] 12:15:00* Test Item Value Reference Range Interpretation Comments Hemoglobin A1C (test code = 4548-4) 5.9 <5.7 % of total Hg b H For someone without known diabetes, a hemoglobin A1c value between 5.7% and 6.4% is consistent withprediabetes and should be confirmed with a follow-up test. For someone with known diabetes, a value <7%indicates that their diabetes is well controlled. P2oabhutsw should be individualized based on duration ofdiabetes, age, comorbid conditions, and otherconsiderations. This assay result is consistent with an increased riskof diabetes. Currently, no consensus exists regarding use ofhemoglobin A1c for diagnosis of diabetes for children. EVAN (test code = EVAN) FASTING:NOFASTING: NO RAC (test code = RAC) Performing Organization Info rmation: Site ID: RGA Name: [facility] Address: [address] [place], [place] [id number] Director: Sukhwinder Coreas Lab Interpretation (test code = 56987-2) Abnormal [facility] specific [id number] 12:15:00* Test Item Value Reference Range Interpretation Comments PSA (test code = 2857-1) 0.6 ng/mL < OR = 4.0 The total PSA value from this assay system is standardized against the WHO standard. The test result will be approximately 20% lower when compared to the equimolar-standardized total PSA (Darline Tyrell). Comparison of serial PSA results should be interpreted with this fact in mind. This test was performed using the Siemens chemiluminescent method. Values obtained from different assay methods cannot be usedinterchangeably. PSA levels, regardless ofvalue, should not be interpreted as absoluteevidence of the presence or absence of disease. EVAN (test code = EVAN) FASTING:NOFASTING: NO RAC (test code = RAC) Performing Organization Info rmation: Site ID: RGA Name: [facility] Address: [address] [place] [phone] Director: Sukhwinder Coreas [facility] with platelet and [id number] 12:15:00* Test Item Value Reference Range Interpretation Comments WBC (test code = 6690-2) 12.3 3.8- 10.8 Thousand/uL H RBC (test code = 789-8) 4.81 4.20- 5.80 Million/uL HGB (test code = 718-7) 14.8 g/dL 13.2-17.1 HCT (test code = 4544-3) 44.0 % 38.5-50 MCV (test code = 787-2) 91.5 fL 80-100 MCH (test code = 785-6) 30.8 pg 27-33 MCHC (test code = 786-4) 33.6 g/dL 32-36 RDW (test code = 788-0) 13.1 % 11-15 Platelet count (test code = 777-3) 152 140- 400 Thousand/u L MPV (test code = 776-5) 11.9 fL 7.5-12.5 Neutrophils, absolute (test code = 751-8) 8278 1,500 - 7,80 0 cells/uL H Lymphocytes, absolute (test code = 731-0) 2915 850- 3,900 c ells/uL Monocytes, absolute (test code = 742-7) 763 200- 950 cells /uL Eosinophils, absolute (test code = 711-2) 234 15- 500 cell s/uL Basophils, absolute (test code = 704-7) 111 0- 200 cells/u L Neutrophils (test code = 770-8) 67.3 % Lymphocytes (test code = 736-9) 23.7 % Monocytes (test code = 5905-5) 6.2 % Eosinophils (test code = 713-8) 1.9 % Basophils + RC (test code = 706-2) 0.9 % EVAN (test code = EVAN) FASTING:NOFASTING: NO RAC (test code = RAC) Performing Organization Info rmation: Site ID: PANA Name: [facility] Address: [address] [place] [phone] Director: Sukhwinder Coreas Lab Interpretation (test code = 40456-2) Abnormal [facility] D 25 hydroxy [id number] 12:15:00* Test Item Value Reference Range Interpretation Comments Vitamin D, 25-hydroxy (test code = 1988-) 28 ng/mL 30-100 L Vitamin D Status 25-OH Vitamin D: Deficiency: <20 ng/mLInsufficiency: 20 - 29 ng/mLOptimal: > or = 30 ng/mL For 25-OH Vitamin D testing on patients on D2-supplementation and patients for whom quantitation of D2 and D3 fractions is required, the QuestAssureD(TM)25-OH VIT D, (D2,D3), LC/MS/MS is recommended: order code 45964 (patients >2yrs).See Note 1 Note 1 For additional information, please refer to http://education.tocario/faq/LNS872 (This link is being provided for informational/educational purposes only.) EVAN (test code = EVAN) FASTING:NOFASTING: NO RAC (test code = RAC) Performing Organization Info rmation: Site ID: RGA Name: [facility] Address: [address] [place] [phone] Director: Sukhwinder Coreas Lab Interpretation (test code = 91789-8) Abnormal [place]INALYSIS, COMPLETE, WITH REFLEX TO [id number] 12:15:00 * Test Item Value Reference Range Interpretation Comments Color, UA (test code = 5778-6) YELLOW YELLOW Appearance (test code = 5767-9) CLEAR CLEAR Specific gravity, urine (test code = 5811-5) 1.029 1.001-1.0 35 pH, urine (test code = 5803-2) < OR = 5.0 5.0-8.0 Glucose, urine (test code = 20146-0) NEGATIVE NEGATIVE Bilirubin, UA (test code = 5770-3) NEGATIVE NEGATIVE Ketones, UA (test code = 2514-8) NEGATIVE NEGATIVE Occult blood, urine (test code = 5794-3) NEGATIVE NEGATIVE Protein, UA (test code = 96913-0) NEGATIVE NEGATIVE Nitrite, UA (test code = 5802-4) NEGATIVE NEGATIVE Leukocyte esterase, UA (test code = 5799-2) NEGATIVE NEGATIVE WBC, UA (test code = 5821-4) NONE SEEN < OR = 5 /HPF RBC, UA (test code = 36885-3) NONE SEEN < OR = 2 /HPF Squamous epithelial cells, UA (test code = 83793-5) NONE SEEN < OR = 5 /HPF Bacteria, UA (test code = 5769-5) NONE SEEN NONE SEEN /HPF Hyaline casts, UA (test code = 5796-8) NONE SEEN NONE SEEN /LPF Reflex (test code = 630-4) NO CULTURE INDICATED EVAN (test code = EVAN) FASTING:NOFASTING: NO RAC (test code = RAC) Performing Organization Info rmation: Site ID: RGA Name: [facility] Address: [address] [place] [phone] Director: [facility] [place] [facility] [id number] 13:34:17* Test Item Value Reference Range Interpretation Comments Ventricular rate (test code = 253) 80 Atrial rate (test code = 255) 80 NC interval (test code = 266) 140 QRSD interval (test code = 260) 148 QT interval (test code = 264) 434 QTC interval (test code = 265) 500 P axis 1 (test code = 267) 66 QRS axis 1 (test code = 268) -78 T wave axis (test code = 270) 52 EKG impression (test code = 273) Normal sinus rhythm w ith sinus arrhythmia-Left axis deviation-Right bundle branch block-Abnormal ECG-In automated comparison with ECG of 21-JUL-2019 07:09,-Vent. rate has increased BY 27 BPM-QT has rachael gthened- [place] [facility]
--- OUTSIDE RECORDS SUMMARY | 2020-07-29 16:48 | XMS REPORT | Clinical Summary ---
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 Role Phone Jose Horan MD PCP Allergies No Known Active Allergies Medications End Date Status Medication Sig Dispensed Refills Start Date Active atorvastatin (LIPITOR) 40 TAKE 1 TABLET 90 tablet 1 MG tabletIndications: BY MOUTH 8 Mixed hyperlipidemia EVERY EVENING Active lisinopriL-hydrochlorothi TAKE 1 TABLET 90 tablet 1 azide (PRINZIDE) 20-12.5 BY MOUTH 0 mg per tabletIndications: EVERY DAY Essential hypertension 10/27/2019 Discontinued atorvastatin (LIPITOR) 40 TAKE 1 TABLET 90 tablet 1 MG tabletIndications: BY MOUTH 9 Mixed hyperlipidemia EVERY EVENING 10/27/2019 Discontinued lisinopril-hydrochlorothi TAKE 1 TABLET 90 tablet 1 azide BY MOUTH 9 (PRINZIDE,ZESTORETIC) EVERY DAY 20-12.5 mg per tabletIndications: Essential hypertension 04/20/2020 Discontinued atorvastatin (LIPITOR) 40 TAKE 1 TABLET 90 tablet 1 MG tabletIndications: BY MOUTH 9 Mixed hyperlipidemia EVERY EVENING 04/20/2020 Discontinued lisinopril-hydrochlorothi TAKE 1 TABLET 90 tablet 1 azide (PRINZIDE) 20-12.5 BY MOUTH 9 mg per tabletIndications: EVERY DAY Essential hypertension 05/01/2020 Discontinued (Error) atorvastatin (LIPITOR) 40 TAKE 1 TABLET 90 tablet 1 mg tabletIndications: BY MOUTH 0 Mixed hyperlipidemia EVERY DAY IN THE EVENING Active Problems Problem Noted Date IFG (impaired fasting glucose) 09/28/2018 Obesity (BMI 30-39.9) 09/28/2018 Essential hypertension 04/05/2018 Mixed hyperlipidemia 04/05/2018 Morbid obesity with BMI of 40.0-44.9, adult 04/05/20 18 Encounters Care Team Description Date Type Specialty Jose Horan MD 06/22/2020 Orders Only Access Jose Horan MD Encounter for general adult medical exam ination with abnormal findings (Primary Dx); Screening for colon cancer; Screening for prostate cancer; Essential hypertension; Obesity (BMI 30-39.9); Mixed hyperlipidemia; IFG (impaired fasting glucose) 05/01/2020 Office Visit Internal Medicine 05/01/2020 Travel Jose Horan MD Mixed hyperlipidemia; Essential hypertension 04/20/2020 Refill Internal Medicine Jose Horan MD Mixed hyperlipidemia; Essential hypertension 10/27/2019 Refill Internal Medicine Jose Horan MD Need for shingles vaccine (Primary Dx) 09/21/2019 Office Visit Internal Medicine Jose Horan MD Need for shingles vaccine 09/21/2019 Office Visit Internal Medicine after 07/28/2019 Immunizations Name Administration Dates Next Due FLUBLOK QUAD PF 07/21/2019 FLUZONE QUAD PF 09/28/2018 Tdap 09/28/2018 Zoster Vaccine 09/21/2019, 07/21/2019 Recombinant Social History Date Tobacco Use Types Packs/Day Years Used Never Smoker Smokeless Tobacco: Never Used Drinks/Week oz/Week Comments Alcohol Use No Sex Assigned at Date Recorded Not on file Last Filed Vital Signs Reading Time Taken Comments Vital Sign 138/87 05/01/2020 1:04 PM CDT Blood Pressure 92 05/01/2020 1:04 PM CDT Pulse - - Temperature - - Respiratory Rate - - Oxygen Saturation - - Inhaled Oxygen Concentration 120 kg (264 lb) 05/01/2020 1:04 PM CDT Weight 175.3 cm (5' 9") 05/01/2020 1:04 PM CDT Height 38.99 05/01/2020 1:04 PM CDT Body Mass Index Plan of Treatment Care Team Description Date Type Specialty Jose Horan MD [address] [id number] 07/30/2020 Office Visit Internal Medicine Jose Horan MD [address] [address] [phone] 09/04/2020 Office Visit Internal Medicine Health Maintenance Due Date Last Done Comments INFLUENZA VACCINE 06/02/2020 07/21/2019, 09/28/2018, 09/28/2018 COLONOSCOPY SCREENING 05/08/2030 05/08/2020 SHINGLES VACCINES Completed 09/21/2019, 09/21/2019, 07/21/2019 Procedures Comments Procedure Name Priority Date/Time Associated Diag nosis [id number] Routine 06/22/2020 [id number] Routine 06/22/2020 VITAMIN D 25 HYDROXY Routine 05/01/2020 Encounter for general LEVEL 1:44 PM CDT adult medical exami nation with abnormal findings URINALYSIS, COMPLETE, Routine 05/01/2020 Screenin g for prostate WITH REFLEX TO CULTURE 1:44 PM CDT cancer PROSTATE SPECIFIC ANTIGEN Routine 05/01/2020 Scre ening for prostate 1:44 PM CDT cancer LIPID PANEL Routine 05/01/2020 Mixed hyperlipi demia 1:44 PM CDT HEMOGLOBIN A1C Routine 05/01/2020 IFG (impaired f asting 1:44 PM CDT glucose) COMPREHENSIVE METABOLIC Routine 05/01/2020 Essent ial hypertension PANEL 1:44 PM CDT CBC WITH PLATELET AND Routine 05/01/2020 Essentia l hypertension DIFFERENTIAL 1:44 PM CDT ECG 12-LEAD Routine 05/01/2020 Essential hyper tension 12:33 PM CDT after 07/28/2019 Results * Miscellaneous Lab Result (06/22/2020) Only the most recent of 2 results within the time period is included. Specimen Blood Narrative Performed At This result has an attachment that is n ot available. * URINALYSIS, COMPLETE, WITH REFLEX TO CULTURE (05/01/2020 1:44 PM CDT) Color, UA YELLOW YELLOW [facility] [place] Appearance CLEAR CLEAR [facility] [place] Specific 1.029 1.001 - 1.035 [facility] gravity, urine [facility] [place] pH, urine < OR = 5.0 5.0 - 8.0 [facility] [place] Glucose, urine NEGATIVE NEGATIVE [facility] [place] Bilirubin, UA NEGATIVE NEGATIVE [facility] [place] Ketones, UA NEGATIVE NEGATIVE [facility] [place] Occult blood, NEGATIVE NEGATIVE [facility] urine [facility] [place] Protein, UA NEGATIVE NEGATIVE [facility] [place] Nitrite, UA NEGATIVE NEGATIVE [facility] [place] Leukocyte NEGATIVE NEGATIVE [facility] esterase, UA [facility] [place] WBC, UA NONE SEEN < OR = 5 /HPF [facility] [place] RBC, UA NONE SEEN < OR = 2 /HPF [facility] [place] Squamous NONE SEEN < OR = 5 /HPF [facility] epithelial [facility] cells, UA [place] Bacteria, UA NONE SEEN NONE SEEN /HPF [facility] [place] Hyaline casts, NONE SEEN NONE SEEN /LPF [facility] UA [facility] [place] Reflex NO CULTURE INDICATED [facility] [place] Specimen Narrative Performed At FASTING:NO [facility] FASTING: NO Resulting Agency Comment Performing Organization Information: Site ID: [id number] Name: [facility] Address: [address] [place] [phone] Director: Sukhwinder Coreas Performing Organization Address City/State/ZIP Code P vamsi Number [facility] [place] [address] [phone] * Vitamin D 25 hydroxy level (05/01/2020 1:44 PM CDT) Vitamin D, 28 (L) 30 - 100 ng/mL [facility] 25-hydroxy Comment: DIAGNOST[facility] Vitamin D Status [place] 25-OH Vitamin D: Deficiency: <20 ng/mL Insufficiency: 20 - 29 ng/mL Optimal: > or = 30 ng/mL For 25-OH Vitamin D testing on patients on D2-supplementation and patients for whom quantitation of D2 and D3 fractions is required, the QuestAssureD(TM) 25-OH VIT D, (D2,D3), LC/MS/MS is recommended: order code 28918 (patients >2yrs). See Note 1 Note 1 For additional information, please refer to http://education.[employer].com/faq/PUC844 (This link is being provided for informational/ educational purposes only.) Specimen Blood Narrative Performed At FASTING:NO [facility] FASTING: NO Resulting Agency Comment Performing Organization Information: Site ID: [id number] Name: [facility] Address: [address] [place] [phone] Director: Sukhwinder Coreas Performing Organization Address City/State/ZIP Code P vamsi Number [facility] [place] [phone] * CBC with platelet and differential (05/01/2020 1:44 PM CDT) WBC 12.3 (H) 3.8 - 10.8 [facility] Thousand/uL [facility] [place] RBC 4.81 4.20 - 5.80 [facility] Million/uL [facility] [place] HGB 14.8 13.2 - 17.1 g/dL [facility] [place] HCT 44.0 38.5 - 50.0 % [facility] [place] MCV 91.5 80.0 - 100.0 fL [facility] [place] MCH 30.8 27.0 - 33.0 pg [facility] [place] MCHC 33.6 32.0 - 36.0 g/dL [facility] [place] RDW 13.1 11.0 - 15.0 % [facility] [place] Platelet count 152 140 - 400 [facility] Thousand/uL [facility] [place] MPV 11.9 7.5 - 12.5 fL [facility] [place] Neutrophils, 8,278 (H) 1,500 - 7,800 [facility] absolute cells/uL [facility] [place] Lymphocytes, 2,915 850 - 3,900 cells/uL [facility] absolute [facility] [place] Monocytes, 763 200 - 950 cells/uL [facility] absolute [facility] [place] Eosinophils, 234 15 - 500 cells/uL [facility] absolute [facility] [place] Basophils, 111 0 - 200 cells/uL [facility] absolute [facility] [place] Neutrophils 67.3 % [facility] [place] Lymphocytes 23.7 % [facility] [place] Monocytes 6.2 % [facility] [place] Eosinophils 1.9 % [facility] [place] Basophils + RC 0.9 % [facility] [place] Specimen Blood Narrative Performed At FASTING:NO [facility] FASTING: NO Resulting Agency Comment Performing Organization Information: Site ID: [id number] Name: [facility] Address: [address] [place] [phone] Director: Sukhwinder Coreas Performing Organization Address City/State/ZIP Code P vamsi Number [facility] [place] [address] [phone] * Prostate specific antigen (05/01/2020 1:44 PM CDT) PSA 0.6 < OR = 4.0 ng/mL [facility] Comment: DI[facility]ST[facility] The total PSA value from this [place] assay system is standardized against the WHO standard. The test result will be approximately 20% lower when compared to the equimolar-standardized total PSA (Darline Lucama). Comparison of serial PSA results should be interpreted with this fact in mind. This test was performed using the Siemens chemiluminescent method. Values obtained from different assay methods cannot be used interchangeably. PSA levels, regardless of value, should not be interpreted as absolute evidence of the presence or absence of disease. Specimen Blood Narrative Performed At FASTING:NO [facility] FASTING: NO Resulting Agency Comment Performing Organization Information: Site ID: RGA Name: [facility] Address: [address] [place] [phone] Director: Sukhwinder Coreas Performing Organization Address [facility] P vamsi Number [phone] [place] [phone] * Hemoglobin A1c (05/01/2020 1:44 PM CDT) Hemoglobin A1C 5.9 (H) <5.7 % of total Hgb [facility] Comment: [facility] For someone without known [place] diabetes, a hemoglobin A1c value between 5.7% and 6.4% is consistent with prediabetes and should be confirmed with a follow-up test. For someone with known diabetes, a value <7% indicates that their diabetes is well controlled. A1c targets should be individualized based on duration of diabetes, age, comorbid conditions, and other considerations. This assay result is consistent with an increased risk of diabetes. Currently, no consensus exists regarding use of hemoglobin A1c for diagnosis of diabetes for children. Specimen Blood Narrative Performed At FASTING:NO [facility] FASTING: NO Resulting Agency Comment Performing Organization Information: Site ID: RGA Name: [facility] Address: [address] [place] [phone] Director: Sukhwinder Coreas Performing Organization Address [facility] P vamsi Number [facility] [place] [phone] * Lipid panel (05/01/2020 1:44 PM CDT) Cholesterol, 184 <200 mg/dL [facility] total [facility] [place] HDL cholesterol 38 (L) > OR = 40 mg/dL [facility] [place] Triglycerides 257 (H) <150 mg/dL [facility] Comment: [facility] If a non-fasting specimen was [place] collected, consider repeat triglyceride testing on a fasting specimen if clinically indicated. Yared et al. J. of Clin. Lipidol. 2015;9:129-169. LDL cholesterol 109 (H) mg/dL (calc) [facility] calculated Comment: DIAGNOSTICS Reference range: <100 [place] Desirable range <100 mg/dL for primary prevention; <70 mg/dL for patients with CHD or diabetic patients with > or = 2 CHD risk factors. LDL-C is now calculated using the Edwin-Carrie calculation, which is a validated novel method providing better accuracy than the Friedewald equation in the estimation of LDL-C. Edwin ROQUE et al. AMBIKA. 2013;310(19): 0288-5894 (http://education.[employer]/faq/TRP334) Cholesterol/HDL 4.8 <5.0 (calc) [facility] ratio [facility] [place] Non-HDL 146 (H) <130 mg/dL (calc) [facility] cholesterol Comment: DIAGNOSTICS For patients with diabetes [place] plus 1 major ASCVD risk factor, treating to a non-HDL-C goal of <100 mg/dL (LDL-C of <70 mg/dL) is considered a therapeutic option. Specimen Blood Narrative Performed At FASTING:NO [facility] FASTING: NO Resulting Agency Comment Performing Organization Information: Site ID: RGA Name: [facility] Address: [address] [place] [phone] Director: Sukhwinder Coreas Performing Organization Address City/State/ZIP Code P vamsi Number [phone] [address] [phone] * Comprehensive metabolic panel (05/01/2020 1:44 PM CDT) [facility] Glucose 86 65 - 139 mg/dL [facility] Comment: [facility] Non-fasting [place] reference interval BUN 19 7 - 25 mg/dL [facility] [place] Creatinine 1.15 0.70 - 1.33 mg/dL [facility] Comment: [facility] For patients >49 years of age, [place] the reference limit for Creatinine is approximately 13% higher for people identified as -Eritrean. EGFR Non-Afr. 74 > OR = 60 [facility] [place] mL/min/1.73m2 [facility] [place] EGFR 86 > OR = 60 [facility] [place] mL/min/1.73m2 [facility] BUN/creatinine NOT APPLICABLE 6 - 22 (calc) [facility] ratio [facility] [place] Sodium 142 135 - 146 mmol/L [facility] [place] Potassium 3.9 3.5 - 5.3 mmol/L [facility] [place] Chloride 101 98 - 110 mmol/L [facility] [place] CO2 31 20 - 32 mmol/L [facility] [place] Calcium 9.3 8.6 - 10.3 mg/dL [facility] [place] Protein 7.5 6.1 - 8.1 g/dL [facility] [place] Albumin, S 4.7 3.6 - 5.1 g/dL [facility] [place] Globulin, total 2.8 1.9 - 3.7 g/dL [facility] (calc) [facility] [place] Albumin/globuli 1.7 1.0 - 2.5 (calc) [facility] n ratio [facility] [place] Total bilirubin 1.1 0.2 - 1.2 mg/dL [facility] [place] Alkaline 77 35 - 144 U/L [facility] phosphatase [facility] [place] AST 15 10 - 35 U/L [facility] [place] ALT 19 9 - 46 U/L [facility] [place] Specimen Blood Narrative Performed At FASTING:NO [facility] FASTING: NO Resulting Agency Comment Performing Organization Information: Site ID: RGA Name: [facility] Address: [address] [place] [phone] Director: Sukhwinder Coreas Performing Organization Address City/State/ZIP Code P vamsi Number [phone] [address] [phone] * ECG 12 lead (05/01/2020 12:33 PM CDT) Ventricular 80 [facility] rate Atrial rate 80 [facility] [place] interval 140 [facility] QRSD interval 148 [facility] QT interval 434 [facility] QTC interval 500 [facility] P axis 1 66 [facility] QRS axis 1 -78 [facility] T wave axis 52 [facility] EKG impression Normal sinus rhythm with sinus [facility] MU SE arrhythmia-Left axis deviation-Right bundle branch block-Abnormal ECG-In automated comparison with ECG of 21-JUL-2019 07:09,-Vent. rate has increased BY 27 BPM-QT has lengthened- Specimen Narrative Performed At This result has an attachment that is n ot available. Performing Organization Address City/[facility]/ZIP Code P vamsi Number [facility] [address] [place] [address] after 07/28/2019 Insurance Type Payer Benefit Subscriber ID Effective Phone Address Plan / Dates Group PPO BCBS BCBS [id number] 2020-P CHOICE resent PPO/[place] [place] PPO [id number] Roshan Rivera Self 1970 [id number] (Home) [place] [address] Advance Directives For more information, please contact: [phone] Patient Equipment Coordinator Explanation Type Date Recorded Advance Directives, Living Will and Medical Power 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
--- OUTSIDE RECORDS SUMMARY | 2020-07-29 16:51 | XMS REPORT | Continuity of Care Document ---
Author Author [facility] t Organization [facility] Address [address] [place] [phone] Phone Unavailable Care Team Providers Care Exterior Interior Specialist Name Role Phone Gael Horan MD PCP DAMary BUI Attphymary Unavailable Gael Horan MD Attphys DAMary BUI Admphys Unavailable Payers Payer Name Policy Type Policy Number Effective Date Expiration Date S cherri BCBSBCBS CHOICE PPO/FEDERAL EMPL [id number] 2019-Pre sentPPO [id number] 2020 00:00:00 Kyle Bautista Problems Condition Name [...] Procedure Date / Time Performed Performing Clinician [facility] alyssa [id number] 2020-06-22 00:00:00 Jose Horan CBC WITH PLATELET [...] Date/Time End Date/Time [facility] Source 2020-05-01 00:00:00 2020-05-01 00:00:00 Outpatient [facility] [id number] [facility] Results Test Description Test Time Test Comments Results Result Comments Source ABDOMEN ACUTE SERIES W/PA CXR 2020-07-29 07:38:00 [facility] [address] [address] Patient Name: DIVYA HUI MR #: [id number] : 1970 Age/Sex: 50/M Req #: [id number] Adm Physician: ADILIA MURRAY MD Ordered by: JACKY PRINCE MD Report #: [id number] Location: MED/SURG Room/Bed: [facility] Procedure: [id number] DX/ABDOMEN ACUTE SERIES W/PA CXR Exam Date: [...] JACKY PRINCE MD ABDOMEN-1VIEW (KUB) 2020-07-29 03:20:[address] [address] Patient Name: DIVYA HUI MR #: [id number] : 1970 Age/Sex: 50/M Req #: [id number] Adm Physician: ADILIA MURRAY MD Ordered by: ADILIA MURRAY MD Report #: [id number] Location: MED/SURG Room/Bed: [facility] Procedure: [id number] DX/ABDOMEN-1VIEW (KUB) Exam Date: 07/29/20 Exam Time: [...] MD CT ABD/PEL WITH CONTRAST-HOPD 2020-07-28 22:38:00 [address] [address] Patient Name: DIVYA HUI MR #: [id number] : 1970 Age/Sex: 50/M Req #: [id number] [facility] Physician: Ordered by: JACKY PRINCE MD Report #: [id number] Location: [facility] Room/Bed: Procedure: HOPD/CT ABD/PEL WITH CONTRAST-HOPD Exam [...] CXR 2 VIEW - HOPD 2020-07-28 22:37:00 [address] [address] Patient Name: DIVYA HUI MR #: [id number] : 1970 Age/Sex: 50/M Req #: [id number] Adm Physician: Ordered by: JACKY PRINCE MD Report #: [id number] Location: [facility] Room/Bed: Procedure: [id number] HOPD/CXR 2 VIEW - HOPD Exam Date: [...] is approximately 13% higher for peopleidentified as -Kittitian. EGFR Non-Afr. Kittitian (test code = 2775) 74 > OR = 60 mL /min/1.73m2 EGFR (test code = 55634-6) 86 > OR = 60 mL/min/1.73m2 BUN/creatinine ratio (test code = 3097-3) NOT APPLICABLE 6- 22 (paola c) Sodium (test code = 2951-2) 142 mmol/L 135-146 Potassium (test code = 2823-3) 3.9 mmol/L 3.5-5.3 Chloride (test code = 2075-0) 101 mmol/L 98-110 CO2 (test code = 2027-9) 31 mmol/L 20-32 Calcium (test code = 72803-9) 9.3 mg/dL 8.6-10.3 Protein (test code = 2885-2) 7.5 g/dL 6.1-8.1 Albumin, S (test code = 1751-7) 4.7 g/dL 3.6-5.1 Globulin, total (test code = 85136-1) 2.8 1.9- 3.7 g/dL (c alc) Albumin/globulin [...] Organization Info rmation: Site ID: RGA Name: [facility] Address: [address] [place] [phone] Director: Sukhwinder Coreas [facility] [id number] 12:15:00* Test Item Value Reference Range Interpretation [...] 2015;9:129-169. LDL cholesterol calculated (test code = 91884-4) 109 mg/dL (calc) H Reference range: <100 Desirable range <100 mg/dL for primary prevention; <70 mg/dL for patients with CHD or diabetic patients with > or = 2 CHD risk factors. LDL-C is now calculated using the Gurmeet calculation, which is a validated novel method providing better accuracy than the Friedewald equation in the estimation of LDL-C. Edwin ROQUE et al. AMBIKA. 2013;310(19): 7076-4718 (http:/ /education.Zipwhip/faq/QRS781) Cholesterol/HDL ratio (test code = 9830-1) 4.8 <5.0 (calc) Non-HDL cholesterol (test code = 47830-0) 146 <130 mg/dL ( calc) H For patients with diabetes plus 1 major ASCVD risk factor, treating to a non-HDL-C goal of <100 mg/dL (LDL-C of <70 mg/dL) is considered a therapeutic option. EVAN (test code = EVAN) FASTING:NOFASTING: NO RAC (test code = RAC) Performing Organization Info rmation: Site ID: RGA Name: [facility] Address: [address] [place] [phone] Director: Sukhwinder Coreas Lab Interpretation (test code = 06586-0) Abnormal [place] MethodistH[facility]oglobin [id number] 12:15:00* Test Item Value Reference Range Interpretation Comments Hemoglobin A1C (test code = 4548-4) 5.9 <5.7 % of total Hg b H For someone without known diabetes, a hemoglobin A1c value between 5.7% and 6.4% is consistent withprediabetes and should be confirmed with a follow-up test. For someone with known diabetes, a value <7%indicates that their diabetes is well controlled. H8ehffqutd should be individualized based on duration ofdiabetes, age, comorbid conditions, and otherconsiderations. This assay result is consistent with an increased riskof diabetes. Currently, no consensus exists regarding use ofhemoglobin A1c for diagnosis of diabetes for children. EVAN (test code = EVAN) FASTING:NOFASTING: NO RAC (test code = RAC) Performing Organization Info rmation: Site ID: RGA Name: [facility] Address: [address] [place], [place] [phone] Director: Sukhwinder Coreas Lab Interpretation (test code = 31684-3) Abnormal [place] MethodistProstate specific [id number] 12:15:00* Test Item Value Reference Range Interpretation [...] Organization Info rmation: Site ID: RGA Name: [facility] Address: [address] [place] [phone] Director: Sukhwinder Coreas [facility] with platelet and [id number] 12:15:00* Test Item Value Reference Range Interpretation [...] Organization Info rmation: Site ID: PANA Name: [facility] Address: [address] [place] [phone] Director: Sukhwinder Coreas Lab Interpretation (test code = 62649-0) Abnormal [place] MethodistVitamin D 25 hydroxy [id number] 12:15:00* Test Item Value Reference Range Interpretation [...] D, (D2,D3), LC/MS/MS is recommended: order code 23962 (patients >2yrs).See Note 1 Note 1 For additional information, please refer to http://education.Zipwhip/faq/XCR866 (This link is being provided for informational/educational purposes only.) EVAN (test code = EVAN) FASTING:NOFASTING: NO RAC (test code = RAC) Performing Organization Info rmation: Site ID: RGA Name: [facility] Address: [address] [place] [phone] Director: Sukhwinder Coreas Lab Interpretation (test code = 95710-6) Abnormal [place] MethodistURINALYSIS, COMPLETE, WITH REFLEX TO [id number] 12:15:00 * Test Item Value Reference Range Interpretation Comments Color, UA (test code = 5778-6) YELLOW YELLOW Appearance (test code = 5767-9) CLEAR CLEAR Specific gravity, urine (test code = 5811-5) 1.029 1.001-1.0 35 pH, urine (test code = 5803-2) < OR = 5.0 5.0-8.0 Glucose, urine (test code = 40031-7) NEGATIVE NEGATIVE Bilirubin, UA (test code = 5770-3) NEGATIVE NEGATIVE Ketones, UA (test code = 2514-8) NEGATIVE NEGATIVE Occult blood, urine (test code = 5794-3) NEGATIVE NEGATIVE Protein, UA (test code = 44230-6) NEGATIVE NEGATIVE Nitrite, UA (test code = 5802-4) NEGATIVE NEGATIVE Leukocyte esterase, UA (test code = 5799-2) NEGATIVE NEGATIVE WBC, UA (test code = 5821-4) NONE SEEN < OR = 5 /HPF RBC, UA (test code = 12586-8) NONE SEEN < OR = 2 /HPF Squamous epithelial cells, UA (test code = 10617-3) NONE SEEN < OR = 5 /HPF Bacteria, UA (test code = 5769-5) NONE SEEN NONE SEEN /HPF Hyaline casts, UA (test code = 5796-8) NONE SEEN NONE SEEN /LPF Reflex (test code = 630-4) NO CULTURE INDICATED EVAN (test code = EVAN) FASTING:NOFASTING: NO RAC (test code = RAC) Performing Organization Info rmation: Site ID: RGA Name: [facility] Address: [address] [place] [phone] Director: Sukhwinder [facility] [place] [id number] 13:34:17* Test Item Value Reference Range Interpretation Comments Ventricular rate (test code = 253) 80 Atrial rate (test code = 255) 80 TX interval (test code = 266) 140 QRSD [...] increased BY 27 BPM-QT has rachael gthened- [place] Lily
--- NOTE | 2020-07-29 19:00 | NUR ---
RECEIVED PATIENT IN BEDSIDE SHIFT REPORT. PATIENT RESTING IN BED AT THIS TIME. MODERATE PAIN D/T NG TUBE, NO ABDOMINAL PAIN REPORTED. BROWN/GREEN FLUID NOTED IN NG TUBE TO L NARE, CONNECTED TO LOW CONTINUOUS WALL SUCTION. NO S&S OF DISTRESS NOTED. BED LOCKED IN LOWEST POSITION, SIDE RAILS UPX2, CALL LIGHT IN REACH.
--- NOTE | 2020-07-29 19:04 | NUR ---
Report given to oncoming nurse of patient's status. Resting in bed. no s/s of acute distress noted. Side rails upx2, call light within reach.
[2020-07-30] VITALS (8 sets, daily range): BP systolic 128–161; BP diastolic 63–85
[2020-07-30] MEDS: SODIUM CHLORIDE 0.9% 250ML IRRIG IR SCH ×3 (03:47→11:57)
[2020-07-30] MEDS: D5.45%NS/KCL 20MEQ 1,000 ML IV SCH ×4 (03:47→23:45)
--- NOTE | 2020-07-30 03:51 | History and Physical ---
CHIEF COMPLAINT: Abdominal pain. HISTORY OF PRESENT ILLNESS: A 50-year-old male, morbidly obese, comes in to the emergency room with complaints of underlying abdominal pain, nausea, vomiting, ongoing since 6:00 p.m. on 07/28/2020. The patient reports that he ate some Luxembour[place] food that was left over and stated that he got very ill. No reports of any chest pain, shortness of breath, or diaphoresis. He reports having no constipation, diarrhea, or any other complaints. The patient is seen and evaluated at bedside on the medical floor. He is currently doing well with no other issues at this time. REVIEW OF SYSTEMS: Pertinent positives: Epigastric abdominal pain, nausea, vomiting. The rest of 14-point review of systems are reviewed with the patient and are negative. ALLERGIES: NO KNOWN DRUG ALLERGIES. HOME MEDICATIONS: Lisinopril. PAST MEDICAL HISTORY: Hypertension and morbidly obese. PAST SURGICAL HISTORY: Reports none. FAMILY HISTORY: Hypertension and diabetes. SOCIAL HISTORY: No drugs . PHYSICAL EXAMINATION: VITAL SIGNS: Temperature is 97.8, pulse 64, respiratory rate is 18, blood pressure 145/71, pulse ox 99%. GENERAL: Not in acute distress. Alert and oriented x3. Cooperative on examination. HEENT: Head is normocephalic and atraumatic. Eyes; pupils are equal, round, and reactive to light bilaterally. PULMONARY: Clear to auscultation bilaterally. No wheezing, rales, or rhonchi. No crackles appreciated. CARDIOVASCULAR: Positive S1 and S2. No murmurs, rubs, or gallops appreciated. ABDOMEN: Soft, nondistended, nontender to palpation. Bowel sounds present. MUSCULOSKELETAL: Strength is 5/5 throughout. No evidence of muscle deficits on examination. SKIN: Intact. Warm to touch. Good cap refill. PSYCHIATRIC: Normal affect and mood. LABORATORY FINDINGS: Show white count 11, hemoglobin 12.7, hematocrit is 38.9, and platelets of 143. Chemistry; sodium 141, potassium 3.9, chloride 106, bicarb 27, anion gap of 11, BUN is 17, creatinine is 0.99, glucose 118, calcium 8. LFTs within normal range. Lipase was 12. Serology; coronavirus is pending. MICROBIOLOGY: None. IMAGING STUDIES: CT abdomen and pelvis shows moderate gaseous distention of the stomach. Gastric outlet obstruction cannot be excluded. Multiple indeterminate hepatic hypodensities. He will need an MRI of the liver protocol. Cholelithiasis and CT evidence of cholecystitis. Multiple prominent mesenteric lymph nodes with surrounding halo, needing further evaluation. Tiny left upper lobe lung nodule, needed outpatient followup. Chest x-ray shows elevated left hemidiaphragm with mild left basilar subsegmental atelectasis. Gaseous distention of the stomach. Abdominal x-ray, NG tube in place. Repeat KUB shows enteric tube above. Patchy left basilar opacities, likely to be atelectasis. IMPRESSION: 1. Abdominal pain with associated nausea and vomiting with concerns of gastric outlet obstruction. 2. Hypodensity seen on the liver. 3. Hypertension. PLAN: At this time, put an NG tube, n.p.o., IV fluids, pain control, GI and General Surgery consultation. Resume same antihypertensive medications. Nutrition. N.p.o. for now. Continue with NG tube feeds to intermittent wall suctioning. Lovenox for DVT prophylaxis. Plan of care discussed with the patient and nursing staff. Continue with IV fluids. MD YO Concepcion/ISAÍASL /[id number]
[2020-07-30 05:16] LABS: BASOPHILS # (AUTO) 0.1 (0.0-0.1); BASOPHILS % 0.6 % (0.0-1.0); EOSINOPHILS # (AUTO) 0.3 (0.0-0.4); EOSINOPHILS % 2.7 % (0.0-6.0); HEMATOCRIT 37.9 % (38.2-49.6); HEMOGLOBIN 12.2 g/dL (14.0-18.0); LYMPHOCYTES % 18.1 % (18.0-39.1); MEAN CORPUSCULAR HEMOGLOBIN 30.5 pg (28-32); MEAN CORPUSCULAR HGB CONC 32.2 g/dL (31-35); MEAN CORPUSCULAR VOLUME 94.8 fL (81-99); MONOCYTES # (AUTO) 0.8 (0.2-0.8); MONOCYTES % 7.3 % (4.4-11.3); NEUTROPHILS # (AUTO) 7.6 (2.1-6.9); NEUTROPHILS % 70.3 % (38.7-80.0); PLATELET COUNT 113 x10e3/uL (140-360)
[2020-07-30 05:45] LABS: ALANINE AMINOTRANSFERASE 14 IU/L (0-55); ALBUMIN 3.9 g/dL (3.5-5.0); ALBUMIN/GLOBULIN RATIO 1.7 (0.8-2.0); ALKALINE PHOSPHATASE 68 IU/L (40-150); ANION GAP 12.8 mmol/L (8-16); BLOOD UREA NITROGEN 12 mg/dL (7-26); BUN/CREATININE RATIO 13 (6-25); CARBON DIOXIDE 27 mmol/L (22-29); CHLORIDE 103 mmol/L (98-107); CREATININE, SERUM 0.94 mg/dL (0.72-1.25); EST GLOMERULAR FILTRATION RATE > 60 ML/MIN (60-); GLUCOSE 100 mg/dL (74-118); POTASSIUM 3.8 mmol/L (3.5-5.1); SODIUM 139 mmol/L (136-145)
--- NOTE | 2020-07-30 07:00 | NUR ---
BEDSIDE SHIFT REPORT RECEIVED FROM JIMENA CUI. PT DENIES FURTHER NEEDS AT THIS TIME.
[2020-07-30] MEDS: PANTOPRAZOLE 40 MG 10ML VIAL IV SCH (08:35)
[2020-07-30] MEDS ORDERED: SEVOFLURANE INHAL SOLN 250 ML PEN BTL ONE (12:05)
[2020-07-30] MEDS ORDERED: GENTAMICIN SULFATE 40 MG/ML 2 ML VIAL ONE (12:05)
[2020-07-30] MEDS ORDERED: ONDANSETRON HCL INJ 2MG/ML 2ML 2 MG/ML VIAL ONE (12:05)
[2020-07-30] MEDS ORDERED: SUCCINYLCHOLINE CHLORIDE 20 MG/ML 10ML VIAL ONE (12:05)
[2020-07-30] MEDS ORDERED: PROPOFOL IV EMULSION 10 MG/ML 20 ML VIAL ONE (12:05)
[2020-07-30] MEDS ORDERED: LIDOCAINE HCL 2% LOCAL INJ 5 ML SDV VIAL INJ ONE (12:05)
[2020-07-30] MEDS ORDERED: ROCURONIUM BROMIDE 10 MG/ML 5ML VIAL IV ONE (12:05)
[2020-07-30] MEDS ORDERED: MIDAZOLAM HCL 2 MG/2 ML VIAL ONE (12:34)
[2020-07-30] MEDS ORDERED: FENTANYL CITRATE/PF 100MCG/2 ML INJ ONE (12:34)
--- NOTE | 2020-07-30 13:30 | NUR ---
PT TO ENDO FOR EGD.
[2020-07-30] MEDS ORDERED: AMPICILLIN SOD 1 GM/NS 50ML 50 ML IV ONE (14:47)
--- NOTE | 2020-07-30 16:00 | NUR ---
PT BACK TO THE FLOOR FROM PACU.
--- NOTE | 2020-07-30 16:04 | Operative Report ---
DATE OF PROCEDURE: 07/30/2020 SURGEON: Howard Kaey MD PROCEDURE: EGD with biopsies. INDICATIONS FOR EGD: Upper abdominal pain, nausea, vomiting? gastric outlet obstruction per CT scan. MEDICATIONS: The patient was done under general endotracheal anesthesia, please see anesthesiologist's note. PROCEDURE IN DETAIL: With the patient in the left lateral decubitus position and after induction of adequate general endotracheal anesthesia, a flexible fiberoptic Olympus gastroscope was introduced into the esophagus under direct visualization without any difficulty. There was some patchy erythema noted in distal esophagus. The scope was then advanced with ease into the stomach. Mucosa overlying the antrum and the body revealed some patchy erythema. Two superficial ulcers approximately 1 cm each in size were noted in the antrum without active bleeding or stigmata of recent hemorrhage and biopsies were obtained. The pylorus was of normal contour and shape, was intubated with ease and the scope was advanced all the way to the second portion of the duodenum. The scope was then withdrawn slowly. Mucosa overlying the proximal second portion and the duodenal bulb appeared to be within normal limits. The scope was then withdrawn back into the stomach and retroflexed, mucosa overlying the fundus and the cardia appeared to be within normal limits. The scope was then straightened out, it was subsequently withdrawn, and the patient tolerated the procedure well. IMPRESSION: 1. Distal esophagitis, mild. 2. Gastric ulcers, antrum, superficial without active bleeding or stigmata of recent hemorrhage. Biopsies obtained. PLAN: Follow up histology. Continue PPI therapy. Initiate clear liquid diet. Findings do not necessarily explain the patient's symptoms. Most likely his symptomatology is due to biliary disease. We will get a HIDA scan with ejection fraction. Howard Kaye MD [facility]/MODL /[id number] cc: MD Remington Concepcion MD
--- NOTE | 2020-07-30 19:48 | NUR ---
Received the pt in report.aox3.ambulates.no resp.distress.no pain voiced.consent obtained.bed locked and in lowest position.phone and call light within reach.instructed to call for assistance as needed.
--- NOTE | 2020-07-30 20:20 | NUR ---
BP NOTED 161/76 MM OF HG.NOTIFIED TO MD MURRAY.ORDER GIVEN TO CONTINUE THE BP HOME MED.IMPLEMENTED.
[2020-07-30] MEDS: LISINOPRIL 20 MG TAB PO SCH (20:46)
[2020-07-31] VITALS (8 sets, daily range): BP systolic 121–148; BP diastolic 57–75
--- NOTE | 2020-07-31 00:50 | Progress Note ---
DATE: 07/30/2020 Medicine Progress Note SUBJECTIVE: The patient was getting an EGD during my evaluation to come see him. According to the nursing staff, the patient was doing well with no complaints. I spoke with the nursing staff by the phone as well and they stated he was doing well. He is scheduled for laparoscopic cholecystectomy tomorrow. PHYSICAL EXAMINATION: VITAL SIGNS: He is afebrile, normotensive, respiratory rate is good. GENERAL: The patient was in the endoscopy suite so I could not evaluate him, but I was able to talk to the nursing staff about the patient. He was doing very well. LABORATORY DATA: Labs show white count 10, hemoglobin 12, hematocrit is 37, and platelets of 130. Chemistry reviewed and stable. IMAGING STUDIES: Nothing new. IMPRESSION: 1. Abdominal pain with associated nausea and vomiting, concerning for gastric outlet obstruction. 2. Hypodensities seen in the liver. 3. Hypertension. PLAN: At this time, postoperative report per the EGD shows distal esophagitis that is mild, shows also gastric ulcers of the antrum, superficial without active bleeding or stigmata of recent hemorrhage. Biopsies were taken. He recommends PPI daily and a HIDA scan. Initiated on clear liquid diet. Hold all anticoagulation. Get a.m. labs. Per nursing report, the patient is scheduled for laparoscopic cholecystectomy for tomorrow. MD YO Concepcion/ISAÍASL /[id number]
[2020-07-31 04:48] LABS: BASOPHILS # (AUTO) 0.1 (0.0-0.1); BASOPHILS % 0.7 % (0.0-1.0); EOSINOPHILS # (AUTO) 0.2 (0.0-0.4); EOSINOPHILS % 2.7 % (0.0-6.0); HEMATOCRIT 37.5 % (38.2-49.6); LYMPHOCYTES # (AUTO) 1.9 (1.0-3.2); LYMPHOCYTES % 21.5 % (18.0-39.1); MEAN CORPUSCULAR HEMOGLOBIN 31.3 pg (28-32); MEAN CORPUSCULAR VOLUME 97.7 fL (81-99); MONOCYTES # (AUTO) 0.7 (0.2-0.8); MONOCYTES % 7.4 % (4.4-11.3); NEUTROPHILS # (AUTO) 5.9 (2.1-6.9); NEUTROPHILS % 67.1 % (38.7-80.0); PLATELET COUNT 133 x10e3/uL (140-360); RED BLOOD COUNT 3.84 x10e6/uL (4.3-5.7); RED CELL DISTRIBUTION WIDTH 12.8 % (11.7-14.4)
[2020-07-31 05:01] LABS: ANION GAP 10.7 mmol/L (8-16); BLOOD UREA NITROGEN 10 mg/dL (7-26); BUN/CREATININE RATIO 11 (6-25); CALCIUM 8.1 mg/dL (8.4-10.2); CARBON DIOXIDE 28 mmol/L (22-29); CHLORIDE 105 mmol/L (98-107); CREATININE, SERUM 0.95 mg/dL (0.72-1.25); EST GLOMERULAR FILTRATION RATE > 60 ML/MIN (60-); GLUCOSE 93 mg/dL (74-118); POTASSIUM 3.7 mmol/L (3.5-5.1); SODIUM 140 mmol/L (136-145)
--- NOTE | 2020-07-31 07:13 | NUR ---
PT IS ON NPO.REPORT GIVEN TO ONCOMING RN.STABLE CONDITION.
[2020-07-31] MEDS: D5.45%NS/KCL 20MEQ 1,000 ML IV SCH ×3 (08:08→23:46)
[2020-07-31] MEDS: PANTOPRAZOLE 40 MG 10ML VIAL IV SCH (08:08)
[2020-07-31] MEDS: LISINOPRIL 20 MG TAB PO SCH (08:08)
[2020-07-31] MEDS ORDERED: NEOSTIGMINE 1 MG/ML 10ML VIAL ONE (12:14)
[2020-07-31] MEDS ORDERED: LIDOCAINE HCL 2% LOCAL INJ 5 ML SDV VIAL INJ ONE (12:14)
[2020-07-31] MEDS ORDERED: GLYCOPYRROLATE INJ 0.2 MG/ML VIAL ONE (12:14)
[2020-07-31] MEDS ORDERED: SEVOFLURANE INHAL SOLN 250 ML PEN BTL ONE (12:14)
[2020-07-31] MEDS ORDERED: EPHEDRINE SULFATE INJ 50 MG/ML VIAL ONE (12:14)
[2020-07-31] MEDS ORDERED: PROPOFOL IV EMULSION 10 MG/ML 20 ML VIAL ONE (12:14)
[2020-07-31] MEDS ORDERED: LIDOCAINE HCL 2% JELLY 5 ML TUBE ONE (12:14)
[2020-07-31] MEDS ORDERED: ONDANSETRON HCL INJ 2MG/ML 2ML 2 MG/ML VIAL ONE (12:14)
[2020-07-31] MEDS ORDERED: DEXAMETHASONE SOD PHOS INJ 4 MG/ML VIAL ONE (12:14)
[2020-07-31] MEDS ORDERED: ROCURONIUM BROMIDE 10 MG/ML 5ML VIAL IV ONE (12:14)
[2020-07-31] MEDS ORDERED: FENTANYL CITRATE/PF 100MCG/2 ML INJ ONE ×2 (12:39→15:14)
[2020-07-31] MEDS ORDERED: MIDAZOLAM HCL 2 MG/2 ML VIAL ONE (12:39)
[2020-07-31] MEDS ORDERED: BUPIVACAINE 0.25% 30ML SDV INJ ONE (13:10)
[2020-07-31] MEDS ORDERED: AMPICILLIN SOD 1 GM/NS 50ML 50 ML IV ONE (13:28)
[2020-07-31] MEDS ORDERED: LIDOCAINE 1% W/EPINEPHRINE 20 ML VIAL ONE (13:32)
--- NOTE | 2020-07-31 13:39 | Progress Note ---
DATE: 07/31/2020 Medicine Progress Note SUBJECTIVE: The patient is scheduled for laparoscopic cholecystectomy later today. No overnight events. PHYSICAL EXAMINATION: VITAL SIGNS: Temperature 98, pulse 55, respiratory rate is 18, blood pressure 129/70, and pulse ox 97% on room air. GENERAL: In no acute distress, alert and oriented x3, cooperative on examination. PULMONARY: Clear to auscultation bilaterally. No wheezing, rales, or rhonchi. No crackles appreciated. CARDIOVASCULAR: Positive S1, S2. No murmurs, rubs, or gallops appreciated. ABDOMEN: Soft, nondistended, nontender to palpation. Bowel sounds present. MUSCULOSKELETAL: Strength is 5/5 throughout. No evidence of muscle deficits on examination. SKIN: Intact, warm to touch. Good cap refill. PSYCHIATRIC: Normal affect and mood. EXTREMITIES: No edema. Good range of motion throughout. LABORATORY FINDINGS: Showed white count 8.8, hemoglobin 12, hematocrit 37.5, and platelets of 133. Chemistry reviewed and stable. IMAGING STUDIES: Nothing new. IMPRESSION: 1. Abdominal pain with nausea and vomiting, status post EGD performed on 07/30/2020, that showed distal esophagitis, gastric ulcers in the antrum. Hypodensities seen on the liver. 2. Hypertension. PLAN: At this time as per GI. EGD report noted. He is currently n.p.o. He is scheduled for laparoscopic cholecystectomy later today. Continue with Protonix. N.p.o. for now. Hold anticoagulation for surgery. Restart diet after surgery. Get an MRI with liver protocol to evaluate the liver lesions that they comment on the prior imaging studies. MD YO Concepcion/MODL /[id number]
[2020-07-31] MEDS ORDERED: SUGAMMADEX SODIUM 200 MG/2 ML VIAL IV ONE (14:24)
--- NOTE | 2020-07-31 14:56 | NUR ---
Patient left for surgery at 1300. No issues or complaints.
--- NOTE | 2020-07-31 16:05 | Operative Report ---
DATE OF PROCEDURE: 07/31/2020 SURGEON: Remington Sol MD PREOPERATIVE DIAGNOSES: Cholecystitis and cholelithiasis. POSTOPERATIVE DIAGNOSES: Cholecystitis and cholelithiasis. OPERATION PERFORMED: Laparoscopic cholecystectomy. ASSISTANTS: 1. Dr. Tru Sol. 2. LIANET Cardona. ANESTHESIA: General endotracheal. COMPLICATIONS: None. ESTIMATED BLOOD LOSS: Minimal. DESCRIPTION OF PROCEDURE: With the patient lying in bed in the supine position under good general endotracheal anesthesia, the abdomen was prepped with Betadine solution and draped in the usual manner. A Veress needle was introduced into the umbilicus and pneumoperitoneum was established without any difficulty. An 11 mm trocar was placed into the umbilicus and a 10 mm video laparoscope was placed into the intraabdominal cavity. Under direct vision, three 5 mm trocars were placed in the right subcostal region. Video laparoscopy at this point revealed some fatty infiltration of the liver and a very redundant left lobe of the liver. There was no lesions that were visualized on the undersurface of the liver. The rest of the abdominal exploration was within normal limits except for the gallbladder, that at some adhesions was thick-walled and contained numerous stones. An extra 5 mm trocar had to be placed in the left upper abdomen to retract and redundant left lobe of the liver. After this was done, the adhesions to the gallbladder were slowly and carefully taken down. The peritoneum overlying the neck of the gallbladder was opened and the cystic duct was identified. The cystic duct was then followed to its junction with the common duct. The cystic duct was then circumferentially dissected away from the common duct, doubly clipped and divided. The cystic artery had an anterior and a posterior branch, both of which were individually clipped and divided. The gallbladder was then slowly and carefully taken off the liver bed using the cautery scissors and perfect hemostasis was ascertained. The gallbladder was placed in a pouch and removed through the umbilicus. Video laparoscopy was then again carried out, the liver bed was found to be perfectly dry. All the excess fluid was aspirated. The pneumoperitoneum was evacuated. All the trocars were removed under direct vision. The midline fascia at the umbilicus was then closed with 2 [id number]-[id number]-nptjf of 0 Vicryl, all layers were infiltrated on the way out with solution of 0.25% Marcaine, subcutaneous tissue was approximated with 3-0 Vicryl, and the skin was closed with subcuticular 5-0 Vicryl. Benzoin, Steri-Strips, and Band-Aids were applied. The sponge, lap, and needle counts were correct. The patient tolerated the procedure well and returned to the recovery room in stable condition. MD CONRAD Romeo/SATNAM /[id number]
[2020-07-31] MEDS: HYDROCODONE/APAP 7.5MG-325MG 1 EA TAB PO PRN ×2 (16:48→21:45)
--- NOTE | 2020-07-31 19:00 | NUR ---
SBAR REPORT RECEIVED FROM FLOWER HESS, PATIENT SEEN AWAKING IN HALLWAY, GAIT STEADY, AOX4, S/P LAP/ANJEL TROCHAR SITE INTACT, PAIN WNL, PATIENT REQUESTING JELLO AND LINEN CHANGE, WILL CONTINUE TO MONITOR Addendum: 08/01/20 at 0329 by MAURICE BOWERS RN SBAR REPORT RECEIVED FROM FLOWER HESS, PATIENT SEEN WALKING IN HALLWAY, GAIT STEADY, AOX4, S/P LAP/ANJEL TROCHAR SITE INTACT, PAIN WNL, PATIENT REQUESTING JELLO AND LINEN CHANGE, WILL CONTINUE TO MONITOR
[2020-08-01] VITALS: BP 126/67
[2020-08-01 04:00] VITALS: BP 122/69
[2020-08-01 04:50] LABS: BASOPHILS # (AUTO) 0.1 (0.0-0.1); BASOPHILS % 0.6 % (0.0-1.0); EOSINOPHILS # (AUTO) 0.3 (0.0-0.4); EOSINOPHILS % 3.7 % (0.0-6.0); HEMATOCRIT 35.6 % (38.2-49.6); HEMOGLOBIN 11.8 g/dL (14.0-18.0); LYMPHOCYTES # (AUTO) 1.9 (1.0-3.2); LYMPHOCYTES % 21.5 % (18.0-39.1); MEAN CORPUSCULAR HEMOGLOBIN 31.9 pg (28-32); MEAN CORPUSCULAR HGB CONC 33.1 g/dL (31-35); MEAN CORPUSCULAR VOLUME 96.2 fL (81-99); MONOCYTES # (AUTO) 0.6 (0.2-0.8); MONOCYTES % 7.1 % (4.4-11.3); NEUTROPHILS % 66.1 % (38.7-80.0); PLATELET COUNT 141 x10e3/uL (140-360); RED CELL DISTRIBUTION WIDTH 13.1 % (11.7-14.4)
[2020-08-01 05:03] VITALS: BP 122/69
[2020-08-01 05:09] LABS: ALANINE AMINOTRANSFERASE 24 IU/L (0-55); ALBUMIN 3.6 g/dL (3.5-5.0); ALBUMIN/GLOBULIN RATIO 1.6 (0.8-2.0); ALKALINE PHOSPHATASE 71 IU/L (40-150); ANION GAP 11.9 mmol/L (8-16); BLOOD UREA NITROGEN 8 mg/dL (7-26); BUN/CREATININE RATIO 8 (6-25); CALCIUM 7.8 mg/dL (8.4-10.2); CARBON DIOXIDE 28 mmol/L (22-29); CHLORIDE 105 mmol/L (98-107); CREATININE, SERUM 0.96 mg/dL (0.72-1.25); EST GLOMERULAR FILTRATION RATE > 60 ML/MIN (60-); GLUCOSE 98 mg/dL (74-118); POTASSIUM 3.9 mmol/L (3.5-5.1); SODIUM 141 mmol/L (136-145)
[2020-08-01] MEDS: HYDROCODONE/APAP 7.5MG-325MG 1 EA TAB PO PRN (05:26)
[2020-08-01] MEDS: D5.45%NS/KCL 20MEQ 1,000 ML IV SCH (08:05)
[2020-08-01 08:19] VITALS: BP 122/69
[2020-08-01 08:21] VITALS: BP 138/71
[2020-08-01] MEDS: PANTOPRAZOLE 40 MG 10ML VIAL IV SCH (08:52)
[2020-08-01] MEDS: LISINOPRIL 20 MG TAB PO SCH (08:53)
--- NOTE | 2020-08-01 10:45 | NUR ---
Showered self this am. States he is passing gas. He will d/c today with full liquid diet and prescriptions. D/c instructions and teaching started
[2020-08-01] MEDS ORDERED: LEVOFLOXACIN250 MG PO (10:48)
[2020-08-01] MEDS ORDERED: TYLENOL # 31 EA PO (10:50)
--- NOTE | 2020-08-01 15:37 | Progress Note ---
DATE: SUBJECTIVE: The patient was discharged by the General Surgeon. I am not going to be doing a discharge summary on this patient. I did not evaluate the patient upon discharge. Apparently, he was discharged on 08/01/2020 earlier today by the nursing staff despite me being the primary attending. Once again, I will now be performed a discharge summary. Please defer discharge summary to the attending discharge the patient. MD YO Concepcion/SATNAM /[id number]
--- NOTE | 2020-08-02 10:30 | Progress Note ---
DATE: Quick Progress Note The patient was discharged on 08/01/2020, by General Surgery. The patient was admitted under my services. The patient underwent an EGD that showed esophagitis and gastritis, and needed to be on Protonix before being discharged. The patient also has some liver lesions that needed to be further workup and in my note on 07/31/2020, I was in the process of ordering an MRI of the liver, but needed to have his cholecystectomy first before further workup is needed. At that time, I will not be performing the discharge summary on Mr. Roshan Rivera. I did not evaluate or discharge the patient on 08/01/2020. The patient was discharged by the nursing staff. I have already reached out to [employer] by phone and discussed the concern about this particular case. This hospital will be reaching out to the patient about needing further imaging studies including MRI of his liver to further evaluate that and I have discussed this with the patient as well when he was in the hospital and he also need his Protonix as recommended by GI. At this time, I will not be performing discharge summary on this particular patient, as I did not see him nor did I discharge the patient on the day that he was discharged. I expressed my concern to the field crew chief, nurse taking care of the patient as well as the floor and the charge nurse as well. They will handle this problem and will contact the patient. Once again, I will not be performing the discharge summary. MD YO Concepcion/SATNAM /[id number]
== END 2020-08-01 11:25 | disposition home or self-care (01) | DRG 418 ==
LOC: FSED 20:51 → OBSVTOIN 07-29 00:04 → ERHOLD 07-29 00:04 → INTOOBSV 07-29 00:04 → MED/SURG 07-29 01:25 → OBSVTOIN 07-30 08:10
PROVIDERS: ADMIT Internal Medicine; ATTEND Internal Medicine
PROC: 0DB78ZX Excision of Stomach, Pylorus, Via Natural or Artificial Opening Endoscopic, Diagnostic (ICD-10-PCS; 2020-07-30)
PROC: 0FT44ZZ Resection of Gallbladder, Percutaneous Endoscopic Approach (ICD-10-PCS; principal; 2020-07-30 14:43)
DX: K80.00 Calculus of gallbladder with acute cholecystitis without obstruction (principal); Z68.41 Body mass index [BMI] 40.0-44.9, adult; Z11.59 Encounter for screening for other viral diseases; E66.01 Morbid (severe) obesity due to excess calories; I10 Essential (primary) hypertension; K20.9 Esophagitis, unspecified; K25.9 Gastric ulcer, unspecified as acute or chronic, without hemorrhage or perforation; K82.8 Other specified diseases of gallbladder; K76.89 Other specified diseases of liver
CPT/HCPCS: 36415; 43239; 71046; 74018; 74022; 74177; 80048; 80053; 81003; 82150; 83690; 85025; 88304; 88305; 88312; 93005; 96361; 96374; 96375; 96376; 99284; C1766; G0378; J0290; J0330; J1100; J1580; J1885; J2001; J2250; J2270; J2405; J2710; J3010; J7030; Q9967